=== PATIENT | female | born 1975 | race Caucasian/White ===

== ENCOUNTER 2016-05-19 15:10 | Emergency (ER) | payer OTHER ==
[2016-05-19 15:30] VITALS: O2SAT 97
[2016-05-19] MEDS ORDERED: ONDANSETRON DISINTEGRATING 4 MG TAB PO ONE (16:10)
[2016-05-19] MEDS ORDERED: KETOROLAC 30 MG/1 ML SDV IVP ONE (16:32)
[2016-05-19] MEDS ORDERED: NS 1,000 ML IV ONE (16:32)
--- NOTE | 2016-05-19 16:34 | CT ---
CT Brain (Without Contrast) at 1613 hours History: Worst headache, left frontal headache. Comparison: None. Technique: Axial computed tomographic images of the brain without contrast. Dose reduction technique s were utilized. Findings: Ventricles, cisterns, and sulci are normal without atrophy, hydrocephalus, midline shift/h erniation, or epidural/subdural hematomas. No acute intraparenchymal hemorrhage, definite infarct, or mass effect. Bone windows demonstrate no displaced fractures. Paranasal sinuses and mastoid air cell s are clear. Impression: 1. Normal CT brain without contrast. 2. No sinusitis. 3.Consider MRI of the brain without and with contrast enhancement, if there is continued clinical con cern. Findings and recommendations discussed with Emergency Department physician, Dr. Lonny Dickerson at 1 630 hour, today. Final report concurs with initial preliminary interpretation.
--- NOTE | 2016-05-19 17:18 | UCPHY ---
H & P Patient Type: Established Chief Complaint Nursing Narrative: headache, nausea, vision problems for 5 days Time Seen by Provider: 05/19/16 15:46 HPI/ROS: Patient reports a gradual onset of headache 5 days ago that has been persistent since. Has waxed and waned in at times nearly resolved but has not entirely resolved today is worse than it has been currently 6/10, peak intensity 8/10. She describes location is left more than right frontal and the nature as achy. She tried ibuprofen with no significant change early this morning. No medications since. She has occasionally had similar headaches but not this severe. She has also not had a headache last for 5 days in the past. She reports the headache is also worse with movement and notes no other exacerbating or alleviating factors. ROS: No fevers or chills. No other constitutional symptoms. Neuro: No focal numbness tingling weakness. She reports that her boyfriend got a carbon monoxide meter to check there-welling and found no concerning carbon monoxide level. Musculoskeletal: No recent trauma HEENT: No sinus congestion sore throat or other complaints pulmonary: No complaints cardiovascular: No complaints 10 point ROS is otherwise negative. Source: Patient Exam Limitations: No limitations - Personal History LMP (Females 10-55): 1-7 Days Ago Current Tetanus Diphtheria and Acellular Pertussis (TDAP): No - Medical/Surgical History PMH: Insomnia treated with trazodone otherwise healthy Family history is negative for intracranial bleeds come and resumes or migraines. Hx Asthma: No Hx Chronic Respiratory Disease: No Hx Diabetes: No Hx Cardiac Disease: No Hx Renal Disease: No Hx Cirrhosis: No Hx Alcoholism: No Hx HIV/AIDS: No Hx Splenectomy or Spleen Trauma: No Other PMH: MULT UTI'S,interstitial cystitis. APPY. CSEC - Family History Significant Family History: No pertinent family hx - Social History Smoking Status: Current every day smoker Alcohol Use: None Drug Use: None - Physical Exam Exam: Physical exam: Vital signs are normal General: Patient is in no acute distress. HEENT: Is no external evidence of trauma on exam. Eyes: Pupils are equal and reactive to light. Extraocular motions are intact. Optic fundi: Clear with no papilledema or hemorrhage. Nose atraumatic. Ears: Clear bilaterally with no hemotympanum. Oropharynx: No dental trauma or malocclusion. No intraoral lacerations. Neck: Trachea is midline with no stridor. The patient has no midline neck tenderness and retains a full range of motion without increase in pain. Lungs: Clear to auscultation bilaterally Cardiac: Regular rate and rhythm no murmur gallop or rub. Chest: Nontender. Abdomen: Soft nontender no organomegaly Back: Nontender Extremities: Atraumatic Neuro: GCS of 15. Cranial nerves II through XII intact. Cerebellar exam is normal as judged by symmetric rapid hand movements bilaterally. No pronator drift. No sensory or motor deficits are appreciated. Initial differential diagnosis: Tension headache, migraine headache, rule intracranial bleed or tumor Constitutional: Initial Vital Signs Temperature (C) 37.1 C 05/19/16 15:24 Heart Rate 81 05/19/16 15:24 Respiratory Rate 14 05/19/16 15:24 Blood Pressure 126/83 H 05/19/16 15:24 O2 Sat (%) 97 05/19/16 15:24 O2 Delivery Mode Room Air Allergies/Adverse Reactions: Sulfa (Sulfonamide Antibiotics) Allergy (Verified 05/19/16 15:23) Home Medications: Medication Instructions Recorded traZODONE 11/08/14 Ondansetron Odt [Zofran Odt] 4 - 8 mg PO Q4PRN PRN #4 tab 05/19/16 SUMAtriptan [Imitrex 50 MG (RX)] 50 - 100 mg PO Q2H PRN #6 tab 05/19/16 Medical Decision Making - Diagnostics Imaging: CT head no contrast: Normal per our radiologist, Dr. Ruiz with no sinusitis intracranial bleed, tumor or other abnl ED Course/Re-evaluation: IV normal saline bolus, Toradol and subcu Imitrex with partial improvement. Discussion: After workup, I find no evidence of significant intracranial pathology. Suspect the patient is having a migraine-type headache counseled regarding some detail. She will follow up with Neurology for any ongoing symptoms. - Data Points Medications Given: Discontinued Medications Sodium Chloride (Ns) 1,000 mls @ 0 mls/hr IV ONCE ONE PRN Reason: Wide Open Stop: 05/19/16 16:33 Last Admin: 05/19/16 16:52 Dose: 1,000 mls Ketorolac Tromethamine (Toradol) 30 mg IVP EDNOW ONE Stop: 05/19/16 16:33 Last Admin: 05/19/16 16:52 Dose: 30 mg Ondansetron HCl (Zofran Odt) 8 mg PO EDNOW ONE Stop: 05/19/16 16:11 Last Admin: 05/19/16 16:11 Dose: 8 mg Sumatriptan Succinate (Imitrex Sc Injection) 6 mg SC EDNOW ONE Stop: 05/19/16 17:25 Last Admin: 05/19/16 17:44 Dose: 6 mg Departure - Departure Disposition: Home, Routine, Self-Care Clinical Impression: Nausea Acute headache Qualifiers: Headache type: unspecified Intractability: not intractable Qualifier Code: (R51 ) Headache Instructions: Migraine Headache (ED) Additional Instructions: Diagnoses: 1. Acute headache 2. Nausea Plan: Ibuprofen-600 mg per 6 hours Imitrex in addition if needed. Also consider caffeine. Zofran for nausea if needed If you have ongoing symptoms or recurrent symptoms, call the neurologist to arrange follow-up appointment for further evaluation. Referrals: NONE *PRIMARY CARE P,. [Primary Care Provider] - As per Instructions Chivo Cain MD [Medical Doctor] - As per Instructions Prescriptions: SUMAtriptan [Imitrex 50 MG (RX)] 50 - 100 mg PO Q2H PRN #6 tab PRN Reason: migraine Ondansetron Odt [Zofran Odt] 4 - 8 mg PO Q4PRN PRN #4 tab PRN Reason: Vomiting - PQRS PQRS Measurement: NA
[2016-05-19] MEDS ORDERED: SUMAtriptan 6 MG/0.5 ML VIAL SC ONE (17:24)
[2016-05-19 17:46] VITALS: RESP 18; TEMP 98
[2016-05-19 17:51] VITALS: BP 142/62; PULSE 71
== END 2016-05-19 17:48 | disposition home or self-care (01) ==
LOC: CED 15:10
DX: R51 Headache (principal); R11.0 Nausea; H53.9 Unspecified visual disturbance; Z72.0 Tobacco use
CPT/HCPCS: 70450-PO; 96361-PO; 96372-PO; 96374-PO; 99215-PO; G0463-PO; J1885; J3030

== ENCOUNTER → 2016-10-21 | Outpatient (CLI) | payer OTHER | LOC: CIMAGING 14:57 | PROVIDERS: ATTEND Family Medicine | DX: N20.1 Calculus of ureter (principal) | CPT/HCPCS: 76770-PO ==

== ENCOUNTER → 2016-11-05 | Outpatient (CLI) | payer OTHER | LOC: CIMAGING 08:04 | PROVIDERS: ATTEND Family Medicine | DX: R10.9 Unspecified abdominal pain (principal) | CPT/HCPCS: 74176-PO ==